=== PATIENT | male | born 1995 ===

== ENCOUNTER 2017-11-24 12:10 | Emergency (ER) | payer OTHER ==
[2017-11-24 12:14] VITALS: O2SAT 100
[2017-11-24] MEDS ORDERED: Bacitracin OINT 15GM TOP STA (12:24)
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
[2017-11-24] MEDS ORDERED: Bacitracin 500 Units/gm Oint Foilpak UD ONE (12:36)
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
[2017-11-24 14:02] VITALS: BP 128/78; PULSE 70; RESP 18; TEMP 98.6
== END 2017-11-24 14:24 | disposition home or self-care (01) ==
LOC: H.ER 12:10
DX: S00.83XA Contusion of other part of head, initial encounter (principal); S09.90XA Unspecified injury of head, initial encounter; V43.52XA Car driver injured in collision with other type car in traffic accident, initial encounter; Y92.410 Unspecified street and highway as the place of occurrence of the external cause